=== PATIENT | female | born 1965 | race Caucasian/White ===

== ENCOUNTER 2020-11-07 15:24 | Emergency (ER) | payer SELFPAY ==
[~2020-11-07] VITALS: Ht 157.5 cm; Wt 77.1 kg
== END 2020-11-07 21:45 | disposition home or self-care (01) ==
LOC: ED 15:24
DX: K76.0 Fatty (change of) liver, not elsewhere classified (principal); E11.65 Type 2 diabetes mellitus with hyperglycemia; I10 Essential (primary) hypertension; Z87.891 Personal history of nicotine dependence; Z88.0 Allergy status to penicillin; Z91.041 Radiographic dye allergy status; E11.9 Type 2 diabetes mellitus without complications
CPT/HCPCS: 71045; 71260; 76705; 80053; 83690; 85025; 85379; 99284-25; J1200; J1885; J2930; Q9967